=== PATIENT | female | born 1945 | race Native Hawaiian/Other Pacific Islander ===

== ENCOUNTER 2016-09-18 10:48 | Outpatient (CLI) | payer OTHER ==
[~2016-09-18] VITALS: Ht 165.1 cm; Wt 72.6 kg
[2016-09-18 11:00] VITALS: BP 123/68; TEMP 98.2
[2016-09-18 12:32] LABS: PLATELET COUNT 364 K/uL (152-353)
== END 2016-09-18 16:05 | disposition home or self-care (01) ==
LOC: INF 10:48
PROVIDERS: Nurse Practitioner
DX: G44.89 Other headache syndrome (principal); R26.9 Unspecified abnormalities of gait and mobility
CPT/HCPCS: 36415; 80053; 81000; 85027; 96361; 96374; 96375; J1885; J2550

== ENCOUNTER 2016-09-22 11:33 | Inpatient (IN) | payer OTHER ==
[~2016-09-22] VITALS: Ht 165.1 cm; Wt 79.8 kg
[2016-09-22 12:03] VITALS: BP 158/78; TEMP 98.4; Ht 165.1 cm; Wt 79.8 kg
[2016-09-22] MEDS ORDERED: BENICAR HCT1 TA1 PO (12:21)
[2016-09-22] MEDS ORDERED: PROM25TA52 PO (12:22)
[2016-09-22] MEDS ORDERED: XANAX XR1 MG PO (12:22)
[2016-09-22] MEDS ORDERED: LORTAB 10-325 M1 TAB PO (12:24)
[2016-09-22] MEDS ORDERED: PROMSYP53 PO (12:26)
[2016-09-22 15:49] LABS: PLATELET COUNT 293 K/uL (152-353)
[2016-09-22 16:00] VITALS: BP 145/68; TEMP 97.8
[2016-09-22 16:32] LABS: POTASSIUM 4.3 mmol/L (3.6-5.2)
[2016-09-22 20:00] VITALS: BP 149/76; TEMP 98.1
[2016-09-22 23:59] VITALS: BP 93/45; TEMP 97.8
[2016-09-23 04:00] VITALS: BP 151/76; TEMP 97.8
[2016-09-23 07:40] LABS: POTASSIUM 4.3 mmol/L (3.6-5.2)
[2016-09-23 08:32] LABS: PLATELET COUNT 336 K/uL (152-353)
[2016-09-23 09:33] VITALS: BP 144/76; TEMP 98.1
[2016-09-23 12:00] VITALS: BP 135/72; TEMP 97.9
[2016-09-23 16:00] VITALS: BP 155/82; TEMP 98
[2016-09-23 20:00] VITALS: BP 112/58; TEMP 98
[2016-09-24] VITALS: BP 137/70; TEMP 98.3
[2016-09-24 04:00] VITALS: BP 151/74; TEMP 98.1
[2016-09-24 05:18] LABS: PLATELET COUNT 341 K/uL (152-353)
[2016-09-24 05:26] LABS: POTASSIUM 4.5 mmol/L (3.6-5.2)
[2016-09-24 08:00] VITALS: BP 154/83; TEMP 98
[2016-09-24 12:00] VITALS: BP 150/80; TEMP 97.6
[2016-09-24 16:00] VITALS: BP 166/89; TEMP 98.2
[2016-09-24 20:00] VITALS: BP 160/88; TEMP 98.1
[2016-09-25] VITALS: BP 119/55; TEMP 98.1
[2016-09-25 04:00] VITALS: BP 155/77; TEMP 98.1
[2016-09-25 05:12] LABS: POTASSIUM 3.9 mmol/L (3.6-5.2); SODIUM 136 mmol/L (136-145)
[2016-09-25 05:20] LABS: PLATELET COUNT 329 K/uL (152-353)
[2016-09-25 08:21] VITALS: BP 186/93; TEMP 98
[2016-09-25 12:00] VITALS: BP 167/80; TEMP 98.1
== END 2016-09-25 14:00 | disposition home or self-care (01) | DRG 641 ==
LOC: MED/SURG 11:33
PROVIDERS: Emergency Medicine; ADMIT Nurse Practitioner
DX: E87.1 Hypo-osmolality and hyponatremia (principal); R41.0 Disorientation, unspecified; E86.0 Dehydration; R51 Headache; J44.9 Chronic obstructive pulmonary disease, unspecified; R53.1 Weakness; D72.828 Other elevated white blood cell count; D64.89 Other specified anemias; Z86.73 Personal history of transient ischemic attack (TIA), and cerebral infarction without residual deficits
CPT/HCPCS: 36415; 80048; 80053; 80061; 81000; 83735; 84439; 84443; 85027; 96365; 96366; J1885; J1940; J3475

== ENCOUNTER 2016-12-16 10:22 | Outpatient (CLI) | payer OTHER ==
[~2016-12-16 10:22] MED LIST: BENICAR HCT1 TA1 PO; LORTAB 10-325 M1 TAB PO; PROM25TA52 PO; PROMSYP53 PO; XANAX XR1 MG PO
[2016-12-16 10:34] LABS: PLATELET COUNT 408 K/uL (152-353)
[2016-12-16 11:25] LABS: POTASSIUM 4.3 mmol/L (3.6-5.2)
== END 2016-12-16 19:05 | disposition home or self-care (01) ==
LOC: LABW 10:22
PROVIDERS: Nurse Practitioner Family
DX: R51 Headache (principal)
CPT/HCPCS: 36415; 80053; 83735; 85027

== ENCOUNTER 2018-02-14 08:37 | Outpatient (CLI) | payer OTHER | END 2018-02-14 22:34 | disposition home or self-care (01) | LOC: RAD 08:37 | DX: J44.1 Chronic obstructive pulmonary disease with (acute) exacerbation (principal) ==

== ENCOUNTER 2018-05-24 10:06 | Outpatient (CLI) | payer OTHER ==
[2018-05-24 10:22] LABS: PLATELET COUNT 335 K/uL (152-353)
== END 2018-05-24 23:23 | disposition home or self-care (01) ==
LOC: LABW 10:06
PROVIDERS: Nurse Practitioner
DX: D64.9 Anemia, unspecified (principal); E53.8 Deficiency of other specified B group vitamins
CPT/HCPCS: 36415; 80053; 82607; 82746; 83540; 85027

== ENCOUNTER → 2019-03-27 | Emergency (ER) | payer OTHER | LOC: ED 11:30 | DX: J18.9 Pneumonia, unspecified organism (principal) | CPT/HCPCS: 99281 ==

== ENCOUNTER 2021-07-21 10:31 | Outpatient (CLI) | payer OTHER | END 2021-07-21 19:42 | disposition home or self-care (01) | LOC: US 10:31 | PROVIDERS: ATTEND Nurse Practitioner Family | DX: M79.605 Pain in left leg (principal); M79.604 Pain in right leg; R22.43 Localized swelling, mass and lump, lower limb, bilateral ==

== ENCOUNTER 2021-07-22 13:36 | Outpatient (CLI) | payer OTHER | END 2021-07-22 19:00 | disposition home or self-care (01) | LOC: US 13:36 | PROVIDERS: ATTEND Nurse Practitioner Family | DX: R60.0 Localized edema (principal) ==

== ENCOUNTER 2021-12-28 22:42 | Inpatient (IN) | payer OTHER ==
[~2021-12-28] VITALS: Ht 167.6 cm; Wt 75.9 kg
[2021-12-28 22:49] VITALS: BP 203/98; TEMP 99.1
[2021-12-28] MEDS ORDERED: FURO20TA67 PO (23:08)
[2021-12-28] MEDS ORDERED: DEXAMETHASON4 MG (23:11)
[2021-12-28] MEDS ORDERED: POTASSIUM99 MG (23:12)
[2021-12-28] MEDS ORDERED: BENICAR HCT1 TA1 PO (23:13)
[2021-12-28] MEDS ORDERED: XANAX XR1 MG (23:14)
[2021-12-28 23:16] LABS: PLATELET COUNT 277 K/uL (152-353)
[2021-12-28] MEDS ORDERED: ELIQUIS5 MG (23:16)
[2021-12-28] MEDS ORDERED: METOPROLOL25 M1 (23:17)
[2021-12-28 23:23] LABS: PARTIAL THROMBOPLASTIN TIME 27.3 SECONDS (24.5-33.6)
[2021-12-28 23:30] VITALS: BP 176/72
[2021-12-28 23:45] VITALS: BP 168/67
[2021-12-29] VITALS (13 sets, daily range): BP systolic 116–206; BP diastolic 58–88; TEMP 97.9–98.2; Ht 167.6 cm; Wt 75.9 kg
[2021-12-29] MEDS ORDERED: ALPR0.5T24 PO (15:56)
[2021-12-29] MEDS ORDERED: DIPHENOXYLATE H1 TAB PO (15:58)
[2021-12-29] MEDS ORDERED: ROPINIROLE2 MG PO (15:59)
[2021-12-29] MEDS ORDERED: HYDROCODONE BIT1 TAB PO (16:01)
[2021-12-29] MEDS ORDERED: LATANOPROST0.005 % OPTH (16:06)
[2021-12-29] MEDS ORDERED: METO-837 PO (16:07)
[2021-12-30 00:05] VITALS: BP 190/93; TEMP 97.6
[2021-12-30 08:00] VITALS: BP 183/81; TEMP 98.4
[2021-12-30 09:54] LABS: PLATELET COUNT 313 K/uL (152-353)
[2021-12-30 10:02] LABS: POTASSIUM 4.9 mmol/L (3.6-5.2)
[2021-12-30 12:00] VITALS: BP 165/72; TEMP 97.9
[2021-12-30 16:24] VITALS: BP 177/72; TEMP 98.2
[2021-12-30 19:30] VITALS: BP 176/80; TEMP 98.8
[2021-12-31] VITALS (10 sets, daily range): BP systolic 117–200; BP diastolic 49–90; TEMP 98.2–98.7
[2021-12-31 05:36] LABS: PLATELET COUNT 298 K/uL (152-353)
[2021-12-31 05:44] LABS: POTASSIUM 4.5 mmol/L (3.6-5.2)
[2021-12-31] MEDS ORDERED: AMLODIPINE BESYLATE PO (13:30)
[2021-12-31] MEDS ORDERED: CEFD300C2 PO (13:30)
[2021-12-31] MEDS ORDERED: LOSA50TA PO (13:31)
[2021-12-31] MEDS ORDERED: METO-837 PO (13:31)
[2022-01-01] VITALS: BP 128/58; TEMP 97.9
[2022-01-01 04:00] VITALS: BP 158/62; TEMP 97.5
[2022-01-01 04:52] LABS: PLATELET COUNT 305 K/uL (152-353)
[2022-01-01 05:28] LABS: POTASSIUM 4.5 mmol/L (3.6-5.2)
[2022-01-01 08:00] VITALS: BP 169/72; TEMP 98.1
== END 2022-01-01 10:38 | disposition home or self-care (01) | DRG 682 ==
LOC: ED 22:42 → MED/SURG 23:45
PROVIDERS: ADMIT Hospitalist; ATTEND Internal Medicine
DX: N17.8 Other acute kidney failure (principal); G93.41 Metabolic encephalopathy; N39.0 Urinary tract infection, site not specified; G93.89 Other specified disorders of brain; I10 Essential (primary) hypertension; B96.20 Unspecified Escherichia coli [E. coli] as the cause of diseases classified elsewhere; D64.89 Other specified anemias; H40.89 Other specified glaucoma; J84.89 Other specified interstitial pulmonary diseases; G89.4 Chronic pain syndrome; T42.4X5A Adverse effect of benzodiazepines, initial encounter; T40.605A Adverse effect of unspecified narcotics, initial encounter; I48.91 Unspecified atrial fibrillation; J44.9 Chronic obstructive pulmonary disease, unspecified; M15.8 Other polyosteoarthritis; S90.31XA Contusion of right foot, initial encounter; W18.39XA Other fall on same level, initial encounter; Y92.89 Other specified places as the place of occurrence of the external cause; Z86.73 Personal history of transient ischemic attack (TIA), and cerebral infarction without residual deficits
CPT/HCPCS: 36415; 51702; 80048; 80053; 80074; 80307; 80320; 81000; 82550; 82570; 82607; 82652; 82746; 83516; 83540; 83550; 83605; 83880; 83970; 84100; 84165; 84166; 84484; 85027; 85610; 85730; 86038; 86160; 86255; 86592; 87015; 87040; 87045; 87077; 87086; 87088; 87186; 87328; 87329; 87635; 87899; 93005; 94760; 96365; 96376; 99284; J0360; J1650; J1956; J2310; J2405; J3490; U0003

== ENCOUNTER 2022-02-05 12:37 | Emergency (ER) | payer OTHER ==
[~2022-02-05] VITALS: Ht 167.6 cm; Wt 73.5 kg
[~2022-02-05 12:37] MED LIST changes: +ALPR0.5T24 PO; +AMLODIPINE BESYLATE PO; +CEFD300C2 PO; +DEXAMETHASON4 MG; +DIPHENOXYLATE H1 TAB PO; +ELIQUIS5 MG; +FURO20TA67 PO; +HYDROCODONE BIT1 TAB PO; +LATANOPROST0.005 % OPTH; +LOSA50TA PO; +METO-837 PO; +METOPROLOL25 M1; +POTASSIUM99 MG; +ROPINIROLE2 MG PO; +XANAX XR1 MG
[2022-02-05 12:45] VITALS: BP 91/38; TEMP 97.2
[2022-02-05 13:47] LABS: PLATELET COUNT 272 K/uL (152-353)
[2022-02-05 13:55] LABS: POTASSIUM 4.5 mmol/L (3.6-5.2)
== END 2022-02-05 15:51 | disposition short-term general hospital (02) ==
LOC: ED 12:37
PROVIDERS: Emergency Medicine
DX: N39.0 Urinary tract infection, site not specified (principal); N18.6 End stage renal disease; D63.1 Anemia in chronic kidney disease; Z53.29 Procedure and treatment not carried out because of patient's decision for other reasons; Z20.822 Contact with and (suspected) exposure to COVID-19
CPT/HCPCS: 36415; 80048; 81000; 85027; 87077; 87086; 87088; 87186; 87635; 99283; U0003

== ENCOUNTER 2022-12-29 10:38 | Outpatient (CLI) | payer OTHER | END 2022-12-29 19:23 | disposition home or self-care (01) | LOC: LAB 10:38 | PROVIDERS: ATTEND Nurse Practitioner | DX: D64.89 Other specified anemias (principal) | CPT/HCPCS: 85018 ==

== ENCOUNTER 2023-01-07 12:17 | Outpatient (CLI) | payer OTHER | END 2023-01-07 17:00 | disposition home or self-care (01) | LOC: LAB 12:17 | PROVIDERS: ATTEND Nurse Practitioner | DX: Z79.899 Other long term (current) drug therapy (principal) | CPT/HCPCS: 80307 ==

== ENCOUNTER 2023-01-11 14:14 | Outpatient (CLI) | payer OTHER | END 2023-01-11 20:44 | disposition home or self-care (01) | LOC: LAB 14:14 | PROVIDERS: ATTEND Nurse Practitioner | DX: R41.0 Disorientation, unspecified (principal) | CPT/HCPCS: 81002 ==

== ENCOUNTER 2023-02-18 15:20 | Observation (INO) | payer OTHER ==
[~2023-02-18] VITALS: Ht 165.1 cm; Wt 75.3 kg
[2023-02-18] VITALS (7 sets, daily range): BP systolic 83–153; BP diastolic 39–70; TEMP 74–97.5
[2023-02-18 16:07] LABS: PLATELET COUNT 269 K/uL (152-353)
[2023-02-19] VITALS (13 sets, daily range): BP systolic 101–125; BP diastolic 39–54; TEMP 97.5–99.2; Ht 165.1 cm; Wt 75.3 kg
[2023-02-19 07:34] LABS: PLATELET COUNT 242 K/uL (152-353)
[2023-02-19 07:45] LABS: POTASSIUM 3.6 mmol/L (3.6-5.2); SODIUM 144 mmol/L (136-145)
[2023-02-19] MEDS ORDERED: METO50TA27 PO (14:29)
[2023-02-19] MEDS ORDERED: ROPINIROLE2 M1 PO (14:30)
[2023-02-19] MEDS ORDERED: VITAMIN D50000 UNIT PO (14:31)
[2023-02-19] MEDS ORDERED: ALLO100T22 PO (14:32)
[2023-02-19] MEDS ORDERED: CALC667T2 PO (14:33)
[2023-02-19] MEDS ORDERED: HYDRALAZINE25 MG PO (14:34)
[2023-02-19] MEDS ORDERED: REMERON30 MG PO (14:38)
[2023-02-19] MEDS ORDERED: ELIQUIS5 MG PO (14:38)
[2023-02-19] MEDS ORDERED: DONE5TAB PO (14:39)
[2023-02-19] MEDS ORDERED: FERROUS GLUC324 M1 PO (14:39)
[2023-02-19] MEDS ORDERED: FURO40TA93 PO (14:41)
[2023-02-19] MEDS ORDERED: ALPRAZOLAM PO (14:42)
[2023-02-20] VITALS (9 sets, daily range): BP systolic 119–156; BP diastolic 48–85; TEMP 98.3–99.8
[2023-02-20 06:49] LABS: PLATELET COUNT 231 K/uL (152-353)
[2023-02-20 06:59] LABS: POTASSIUM 3.3 mmol/L (3.6-5.2)
[2023-02-21 03:45] VITALS: BP 137/52; TEMP 98.7
[2023-02-21 05:43] LABS: PLATELET COUNT 213 K/uL (152-353)
[2023-02-21 05:57] LABS: POTASSIUM 3.4 mmol/L (3.6-5.2)
[2023-02-21 08:00] VITALS: BP 177/76; TEMP 98.6
[2023-02-21 12:00] VITALS: BP 162/67; TEMP 98.2
[2023-02-21 16:00] VITALS: BP 168/71; TEMP 97.7
== END 2023-02-21 17:15 | disposition home or self-care (01) ==
LOC: ED 15:20 → MED/SURG 17:20
PROVIDERS: Family Medicine; ADMIT Nurse Practitioner Family; ATTEND Internal Medicine
DX: N17.8 Other acute kidney failure (principal); D62 Acute posthemorrhagic anemia; N18.4 Chronic kidney disease, stage 4 (severe); D64.89 Other specified anemias; I95.89 Other hypotension; R26.81 Unsteadiness on feet; Z96.642 Presence of left artificial hip joint; F17.210 Nicotine dependence, cigarettes, uncomplicated; E86.1 Hypovolemia; J44.9 Chronic obstructive pulmonary disease, unspecified; R06.2 Wheezing; Z99.81 Dependence on supplemental oxygen; E87.6 Hypokalemia; S40.022A Contusion of left upper arm, initial encounter; S80.12XA Contusion of left lower leg, initial encounter; W18.39XA Other fall on same level, initial encounter; Y92.89 Other specified places as the place of occurrence of the external cause
CPT/HCPCS: 36415; 36430; 80053; 81002; 82728; 82948; 83540; 83550; 83605; 83735; 83880; 84100; 84443; 84484; 85014; 85018; 85027; 86850; 86900; 86901; 86922; 87040; 90471; 90715; 93005; 94664; 94760; 96360; 96361; 96367; 96375; 99221; 99284; G0378; J0692; P9016

== ENCOUNTER 2023-03-08 13:20 | Outpatient (CLI) | payer OTHER ==
[~2023-03-08 13:20] MED LIST changes: +ALLO100T22 PO; +ALPRAZOLAM PO; +CALC667T2 PO; +DONE5TAB PO; +ELIQUIS5 MG PO; +FERROUS GLUC324 M1 PO; +FURO40TA93 PO; +HYDRALAZINE25 MG PO; +METO50TA27 PO; +REMERON30 MG PO; +ROPINIROLE2 M1 PO; +VITAMIN D50000 UNIT PO
== END 2023-03-08 20:49 | disposition home or self-care (01) ==
LOC: LAB 13:20
PROVIDERS: ATTEND Nurse Practitioner
DX: N39.0 Urinary tract infection, site not specified (principal)
CPT/HCPCS: 81002; 87088

== ENCOUNTER 2023-03-13 11:14 | Inpatient (IN) | payer OTHER ==
[~2023-03-13] VITALS: Ht 165.1 cm; Wt 69.1 kg
[2023-03-13 11:20] VITALS: BP 125/66; TEMP 97.8
[2023-03-13 11:55] LABS: PLATELET COUNT 359 K/uL (152-353)
[2023-03-13 12:06] LABS: POTASSIUM 2.8 mmol/L (3.6-5.2)
[2023-03-13] MEDS ORDERED: NITROFURANTOIN100 M1 PO (15:56)
[2023-03-13] MEDS ORDERED: SMZ-TMP DS1 TAB PO (15:58)
[2023-03-13 16:00] VITALS: BP 100/49; TEMP 98.6
[2023-03-13] MEDS ORDERED: ALPR0.5T24 PO (16:08)
[2023-03-13 16:18] VITALS: BP 125/61; TEMP 98.3; Ht 165.1 cm; Wt 69.1 kg
[2023-03-13 20:00] VITALS: BP 118/57; TEMP 99.1
[2023-03-14] VITALS: BP 139/64; TEMP 99.1
[2023-03-14 03:20] VITALS: BP 114/51; TEMP 99
[2023-03-14 05:37] LABS: POTASSIUM 2.8 mmol/L (3.6-5.2)
[2023-03-14 05:38] LABS: PLATELET COUNT 278 K/uL (152-353)
[2023-03-14 08:00] VITALS: BP 106/65; TEMP 98.6
[2023-03-14 12:00] VITALS: BP 120/53; TEMP 97.9
[2023-03-14 16:00] VITALS: BP 125/56; TEMP 98.1
[2023-03-14 20:00] VITALS: BP 126/48; TEMP 98.5
[2023-03-15] VITALS: BP 124/59; TEMP 98.7
[2023-03-15 04:00] VITALS: BP 139/61; TEMP 98.9
[2023-03-15 05:24] LABS: PLATELET COUNT 275 K/uL (152-353)
[2023-03-15 05:26] LABS: POTASSIUM 5.6 mmol/L (3.6-5.2)
[2023-03-15 08:00] VITALS: BP 128/53; TEMP 97.7
== END 2023-03-15 10:55 | disposition home or self-care (01) | DRG 603 ==
LOC: ED 11:14 → MED/SURG 12:31
PROVIDERS: Family Medicine; ADMIT Internal Medicine Endocrinology, Diabetes & Metabolism; ATTEND Internal Medicine Endocrinology, Diabetes & Metabolism
DX: L03.116 Cellulitis of left lower limb (principal); L03.114 Cellulitis of left upper limb; L03.113 Cellulitis of right upper limb; N18.5 Chronic kidney disease, stage 5; E87.20 Acidosis, unspecified; I12.0 Hypertensive chronic kidney disease with stage 5 chronic kidney disease or end stage renal disease; Z91.81 History of falling; Z86.73 Personal history of transient ischemic attack (TIA), and cerebral infarction without residual deficits; J44.9 Chronic obstructive pulmonary disease, unspecified; G25.81 Restless legs syndrome; F32.A Depression, unspecified; G89.4 Chronic pain syndrome; D50.8 Other iron deficiency anemias; F03.C0 Unspecified dementia, severe, without behavioral disturbance, psychotic disturbance, mood disturbance, and anxiety; F17.210 Nicotine dependence, cigarettes, uncomplicated; Z79.01 Long term (current) use of anticoagulants
CPT/HCPCS: 36415; 80048; 80053; 81002; 83605; 83735; 85007; 85027; 87040; 94664; 96361; 96365; 99284; J3475

== ENCOUNTER 2023-04-02 13:49 | Inpatient (IN) | payer OTHER ==
[2023-04-02] VITALS (8 sets, daily range): BP systolic 95–125; BP diastolic 33–54; TEMP 98.1–100.2; Ht 167.6 cm; Wt 71.0 kg
[~2023-04-02] VITALS: Ht 167.6 cm; Wt 71.0 kg
[~2023-04-02 13:49] MED LIST changes: +NITROFURANTOIN100 M1 PO; +SMZ-TMP DS1 TAB PO
[2023-04-02 14:21] LABS: PLATELET COUNT 170 K/uL (152-353)
[2023-04-03] VITALS: BP 133/57; TEMP 98.1
[2023-04-03 04:00] VITALS: BP 121/58; TEMP 98
[2023-04-03 05:17] LABS: PLATELET COUNT 174 K/uL (152-353)
[2023-04-03 08:00] VITALS: BP 139/61; TEMP 98.6
== END 2023-04-03 12:30 | disposition home or self-care (01) | DRG 177 ==
LOC: ED 13:49 → MED/SURG 15:30
PROVIDERS: Family Medicine; ADMIT Internal Medicine Endocrinology, Diabetes & Metabolism; ATTEND Internal Medicine Endocrinology, Diabetes & Metabolism
DX: U07.1 COVID-19 (principal); J96.01 Acute respiratory failure with hypoxia; N18.4 Chronic kidney disease, stage 4 (severe); F17.210 Nicotine dependence, cigarettes, uncomplicated; Z86.73 Personal history of transient ischemic attack (TIA), and cerebral infarction without residual deficits; J44.9 Chronic obstructive pulmonary disease, unspecified; G25.81 Restless legs syndrome; F41.8 Other specified anxiety disorders; G89.4 Chronic pain syndrome; D50.8 Other iron deficiency anemias; F03.90 Unspecified dementia, unspecified severity, without behavioral disturbance, psychotic disturbance, mood disturbance, and anxiety; I12.9 Hypertensive chronic kidney disease with stage 1 through stage 4 chronic kidney disease, or unspecified chronic kidney disease
CPT/HCPCS: 36415; 80048; 80053; 81002; 83605; 84484; 85027; 87635; 93005; 94664; 96361; 96374; 99284; J1956; J0248; J0612; J1100; J2930; U0003

== ENCOUNTER 2023-05-17 11:04 | Observation (INO) | payer OTHER ==
[2023-05-17] VITALS (10 sets, daily range): BP systolic 102–161; BP diastolic 49–69; TEMP 97.7–98.5; Ht 165.1 cm; Wt 66.7 kg
[~2023-05-17] VITALS: Ht 165.1 cm; Wt 66.7 kg
[2023-05-17 11:57] LABS: PLATELET COUNT 254 K/uL (152-353)
[2023-05-17 12:02] LABS: POTASSIUM 3.1 mmol/L (3.6-5.2)
[2023-05-17] MEDS ORDERED: HYDRALAZINE25 MG PO (15:51)
[2023-05-17] MEDS ORDERED: VITAMIN D50000 UNIT PO (15:52)
[2023-05-17] MEDS ORDERED: SANTYL250 UNIT/G TOP (15:53)
[2023-05-17] MEDS ORDERED: LATANOPROST0.005 % OPTH (15:53)
[2023-05-17] MEDS ORDERED: BACLOFEN10 MG PO (15:55)
[2023-05-17] MEDS ORDERED: HYDR10TA47 PO (15:56)
[2023-05-17] MEDS ORDERED: ALPRAZOLAM PO (15:57)
[2023-05-18 03:38] VITALS: BP 135/63; TEMP 98.2
[2023-05-18 05:00] LABS: PLATELET COUNT 261 K/uL (152-353)
[2023-05-18 08:00] VITALS: BP 118/58; TEMP 98.7
== END 2023-05-18 12:02 | disposition home or self-care (01) ==
LOC: ED 11:04 → MED/SURG 12:46
PROVIDERS: Family Medicine; ADMIT Internal Medicine Endocrinology, Diabetes & Metabolism; ATTEND Internal Medicine Endocrinology, Diabetes & Metabolism
DX: N30.00 Acute cystitis without hematuria (principal); J44.1 Chronic obstructive pulmonary disease with (acute) exacerbation; R06.09 Other forms of dyspnea; R30.0 Dysuria; Z72.0 Tobacco use; N18.4 Chronic kidney disease, stage 4 (severe); G92.8 Other toxic encephalopathy; G89.4 Chronic pain syndrome; F03.90 Unspecified dementia, unspecified severity, without behavioral disturbance, psychotic disturbance, mood disturbance, and anxiety; I12.9 Hypertensive chronic kidney disease with stage 1 through stage 4 chronic kidney disease, or unspecified chronic kidney disease
CPT/HCPCS: 36415; 80048; 80053; 81000; 83880; 84484; 85027; 87077; 87086; 87088; 87186; 93005; 94664; 94760; 96365; 96375; 99221; 99284; J1956; G0378; J0696; J2920; J2930

== ENCOUNTER 2023-06-15 15:39 | Observation (INO) | payer OTHER ==
[2023-06-15] VITALS (9 sets, daily range): BP systolic 111–135; BP diastolic 44–63; TEMP 97–97.3; Ht 165.1 cm; Wt 64.4 kg
[~2023-06-15] VITALS: Ht 165.1 cm; Wt 64.4 kg
[~2023-06-15 15:39] MED LIST changes: +BACLOFEN10 MG PO; +HYDR10TA47 PO; +SANTYL250 UNIT/G TOP
[2023-06-15 17:18] LABS: PLATELET COUNT 321 K/uL (152-353)
[2023-06-15 17:25] LABS: POTASSIUM 4.3 mmol/L (3.6-5.2)
[2023-06-16] VITALS: BP 126/52; TEMP 97.5
[2023-06-16 03:48] VITALS: BP 95/48; TEMP 97.6
[2023-06-16 08:00] VITALS: BP 108/48; TEMP 97.5
[2023-06-16] MEDS ORDERED: PROM25TA52 PO (10:47)
[2023-06-16] MEDS ORDERED: PHOSLO667 MG PO (10:57)
[2023-06-16 12:00] VITALS: BP 134/57; TEMP 97.6
[2023-06-16 16:00] VITALS: BP 116/56; TEMP 98.3
[2023-06-16 20:00] VITALS: BP 135/63; TEMP 98.3
[2023-06-17] VITALS: BP 127/60; TEMP 98.3
[2023-06-17 04:00] VITALS: BP 148/75; TEMP 97.6
[2023-06-17 07:30] LABS: POTASSIUM 4.3 mmol/L (3.6-5.2)
[2023-06-17 07:54] LABS: PLATELET COUNT 289 K/uL (152-353)
[2023-06-17 08:00] VITALS: BP 136/67; TEMP 98.1
[2023-06-17 12:00] VITALS: BP 126/51; TEMP 98
== END 2023-06-17 15:13 | disposition home or self-care (01) ==
LOC: ED 15:39 → MED/SURG 21:12
PROVIDERS: Family Medicine; ADMIT Internal Medicine Endocrinology, Diabetes & Metabolism; ATTEND Internal Medicine Endocrinology, Diabetes & Metabolism
DX: J44.1 Chronic obstructive pulmonary disease with (acute) exacerbation (principal); F03.90 Unspecified dementia, unspecified severity, without behavioral disturbance, psychotic disturbance, mood disturbance, and anxiety; R09.02 Hypoxemia; R06.09 Other forms of dyspnea; R53.81 Other malaise; N17.8 Other acute kidney failure; N18.9 Chronic kidney disease, unspecified; N39.0 Urinary tract infection, site not specified; E86.0 Dehydration; F17.210 Nicotine dependence, cigarettes, uncomplicated; I12.9 Hypertensive chronic kidney disease with stage 1 through stage 4 chronic kidney disease, or unspecified chronic kidney disease
CPT/HCPCS: 36415; 36600; 80053; 81002; 82805; 83735; 83880; 84100; 84484; 85027; 93005; 94664; 94760; 96360; 99221; 99284; G0378